=== PATIENT | female | born 1990 | race Hispanic/Latino ===

== ENCOUNTER 2021-06-06 07:29 | Emergency (ER) | payer BC, OTHER ==
[~2021-06-06] VITALS: Ht 157.5 cm; Wt 111.1 kg
[2021-06-06] MEDS ORDERED: ONDANSETRON HCL INJ 2MG/ML 2ML 2 MG/ML VIAL IV STA (07:40)
[2021-06-06] MEDS ORDERED: SODIUM CHLORIDE 0.9% 1000ML 1,000 ML IV STA (07:40)
[2021-06-06] MEDS ORDERED: DIPHENHYDRAMINE HCL INJ 50 MG/ML VIAL IV ONE (07:45)
[2021-06-06] MEDS ORDERED: MORPHINE SULFATE INJ 4 MG/ML INJ 1ML IV ONE (08:05)
[2021-06-06 08:08] LABS: BASOPHILS % 0.4 % (0.0-1.0); EOSINOPHILS # (AUTO) 0.1 (0.0-0.4); EOSINOPHILS % 1.9 % (0.0-6.0); HEMATOCRIT 43.1 % (34.2-44.1); HEMOGLOBIN 14.8 g/dL (12.0-16.0); LYMPHOCYTES # (AUTO) 2.5 (1.0-3.2); LYMPHOCYTES % 45.9 % (18.0-39.1); MEAN CORPUSCULAR HEMOGLOBIN 32.5 pg (28-32); MEAN CORPUSCULAR HGB CONC 34.3 g/dL (31-35); MEAN CORPUSCULAR VOLUME 94.7 fL (81-99); MONOCYTES # (AUTO) 0.5 (0.2-0.8); MONOCYTES % 8.4 % (4.4-11.3); NEUTROPHILS # (AUTO) 2.3 (2.1-6.9); NEUTROPHILS % 43.2 % (38.7-80.0); PLATELET COUNT 171 x10e3/uL (140-360); RED BLOOD COUNT 4.55 x10e6/uL (3.6-5.1); RED CELL DISTRIBUTION WIDTH 11.5 % (11.7-14.4)
[2021-06-06 08:16] LABS: CLARITY,URINE CLEAR (CLEAR); COLOR,URINE YELLOW (YELLOW); KETONES,URINE NEGATIVE (NEGATIVE); LEUKOCYTE ESTERASE ,URINE NEGATIVE (NEGATIVE); NITRITE,URINE NEGATIVE (NEGATIVE); PROTEIN,URINE DIPSTICK NEGATIVE (NEGATIVE); URINE UROBILINOGEN 0.2 mg/dL (0.2 - 1)
[2021-06-06 08:32] LABS: ALBUMIN 3.7 g/dL (3.5-5.0); ALBUMIN/GLOBULIN RATIO 1.1 (0.8-2.0); ANION GAP 11.7 mmol/L (8-16); CALCIUM 9.1 mg/dL (8.4-10.2); CREATININE, SERUM 0.82 mg/dL (0.57-1.11); POTASSIUM 3.7 mmol/L (3.5-5.1)
[2021-06-06 08:45] LABS: BACTERIA,URINE MODERATE /HPF; EPITHELIAL CELLS,URINE FEW /LPF; WBC,URINE (MAN) 0-5 /HPF (0-5)
[2021-06-06] MEDS ORDERED: KETOROLAC TROMETHAMINE 30 MG/ML VIAL IV STA (09:22)
[2021-06-06] MEDS ORDERED: FENTANYL CITRATE/PF 100MCG/2 ML INJ IV ONE (12:00)
[2021-06-06] MEDS ORDERED: IBUPROFEN600 MG PO (13:08)
[2021-06-06] MEDS ORDERED: ONDANSETRON ODT4 MG PO (13:08)
== END 2021-06-06 13:29 | disposition home or self-care (01) ==
LOC: ER 08:14
DX: R10.32 Left lower quadrant pain (principal); R10.2 Pelvic and perineal pain
CPT/HCPCS: 36415; 74176; 76830; 76856; 80053; 81001; 81025; 83690; 85025; 99283; J1885; J2270; J2405; J3010; J7030

== ENCOUNTER 2022-06-13 16:04 | Emergency (ER) | payer BC ==
[~2022-06-13] VITALS: Ht 157.5 cm; Wt 125.9 kg
[~2022-06-13 16:04] MED LIST: IBUPROFEN600 MG PO; ONDANSETRON ODT4 MG PO
[2022-06-13] MEDS ORDERED: PROPRANOLOL HCL40 MG PO (16:47)
[2022-06-13] MEDS ORDERED: NURTEC ODT75 MG (16:47)
[2022-06-13] MEDS ORDERED: CLINDAMYCIN HC150 MG PO (18:10)
== END 2022-06-13 18:18 | disposition home or self-care (01) ==
LOC: FSED 17:01
DX: R10.30 Lower abdominal pain, unspecified (principal); L02.214 Cutaneous abscess of groin; R21 Rash and other nonspecific skin eruption
CPT/HCPCS: 74176; 80048; 80076; 81003; 81025; 85025; 99284